=== PATIENT | female | born 1995 | race Caucasian/White ===

== ENCOUNTER 2024-02-26 15:40 | Inpatient (IN) ==
--- NOTE | 2024-02-26 16:47 | Emergency Department Note ---
Impression & Plan Mood disorder ED Provider Note NAME: KIARRA CANO AGE: 28 SEX: Female INFORMANT: Patient ED PROVIDER(S): Milo Paula MD CHIEF COMPLAINT: Mental health evaluation PLAN: Disposition: Admitted Outpatient prescription management: none Referral: MEDICAL DECISION MAKING: Patient was evaluated. She was anxious and depressed. Her laboratory testing was unremarkable except for mild hypokalemia. Likely due to the fact that she has had decreased p.o. intake. Patient had some abnormalities on urinalysis but has no urinary symptoms. Culture sent. Tylenol and salicylate levels negative. Alcohol level negative. Patient was evaluated by ED psychiatric bilingual patient support caseworker. Options for evaluation and management given and patient is voluntary for inpatient psychiatric treatment. Consultation was made with [facility]. Patient had oral potassium given. She was quite anxious and was given a oral dose of Xanax. Patient was evaluated by [facility]. She was accepted for voluntary inpatient treatment. Care/management discussed with: ED psychiatric bilingual patient support caseworker Level of care consideration(s): After review of the information above and other included data, I feel the patient requires escalation of care to admission. Triage Nursing notes: reviewed and agree them. Vital Signs: reviewed and remarkable for no significant abnormalities Additional History obtained from: none Chronic Medical/Social Conditions affecting care: Anxiety Prior/ Outside/ External records reviewed: none Differential Diagnosis: Mood disorder, infection, hypoglycemia, electrolyte abnormalities, cardiac sources, intracerebral event, toxicologic, trauma, neurologic, as well as other pathologies. Diagnostics, independently interpreted by me: ECG: none Cardiac Monitoring: none Medical decision rules: none Imaging studies: Deferred HPI: 28 year old Female arrives for a mental health evaluation. She notes over the last few weeks she is been having more feelings of depression. She states that over the last several weeks she has had increased of her Prozac. Despite increasing doses she had increased issues with her mood. Patient has had vague thoughts of SI. No HI. Denies any drug or alcohol use. She does note history of anxiety and states that has been worse as well. Patient has had poor sleep and concentration. She notes a lack of energy and appetite. Denies any recent medical illnesses. Pt denies LOC, headache, fevers, chills, diaphoresis, visual changes, neck pain, chest pain, breathing difficulties, nausea, vomiting, abdominal pain, back pain, melena, hematochezia, urinary symptoms, numbness, weakness, lymphadenopathy, rash, or other complaints. PAST MEDICAL HISTORY: See Below, anxiety PAST SURGICAL HISTORY: See Below, SOCIAL HISTORY: See Below, no alcohol or drugs HOME MEDICATIONS: See Below ALLERGIES: See Below VITALS: See Below PHYSICAL EXAMINATION: GENERAL: Awake, alert, depressed-appearing, in no distress HENT: Normocephalic, atraumatic. Oropharynx unremarkable. EYES: Normal conjunctiva. Sclera non-icteric. NECK: Inspection normal. Non-tender. Supple. No nuchal rigidity. FROM. No masses. RESPIRATORY: Clear to auscultation. No wheezes. No rales. Normal respiratory effort. CARDIAC: Normal rate. Normal rhythm. No murmurs. No rubs. Extremities warm and well perfused. Pulses equal. No JVD. GI: Soft, non-distended. No tenderness to palpation. No rebound or guarding. No masses. RECTAL: Deferred. MUSCULOSKELETAL: Atraumatic. Chest examination reveals no tenderness. The back is symmetrical on inspection without obvious abnormality. There is no CVA tenderness to palpation. No joint edema. LOWER EXTREMITIES: Calves are equal size bilaterally and non-tender. No edema. No discoloration. NEURO: Normal sensorium. No sensory or motor deficits noted. Current nerves II through XII intact. Speech normal. SKIN: No rash or jaundice noted. PSYCH: Depressed mood and flat affect. Vague SI without plan. No HI. PROCEDURES: none CRITICAL CARE: none OBSERVATION NOTE: none Past Med/Surg History Problem List (Updated 02/26/24 @ 16:52 by Milo Paula MD) Mood disorder (Acute) Pulmonary nodule Asthma Chronic fatigue syndrome Fibromyalgia STD exposure Environmental and seasonal allergies Arthritis Medical History Juvenile arthritis Environmental and seasonal allergies Arthritis Surgical History History of tonsillectomy and adenoidectomy History of sinus surgery Family History Grandfather (Maternal) Myocardial infarction Cancer Denies family history of Ovarian cancer Prostate cancer Breast cancer Colorectal cancer Social History Smoking Status: Never smoker Preferred Language: Lebanese Feels Safe at Home: Yes Gender Identity: Female Allergies Allergies Allergy/AdvReac Type Severity Reaction Status Date / Time ANTIBIOTIC FOR PINK EYE Allergy Intermediate EYE Uncoded 07/07/23 08:46 SWELLED, REDDENED, IRRITATED Home Meds Home Medications Medication Instructions Recorded Confirmed cetirizine 10 mg capsule (Zyrtec) 10 mg PO DAILY 04/23/22 02/26/24 montelukast 10 mg tablet 10 mg PO DAILY 04/23/22 02/26/24 (Singulair) celecoxib 200 mg capsule 200 mg PO HS 11/01/22 02/26/24 albuterol sulfate 90 mcg/actuation 2 puff inhalation Q6H PRN Wheezing 01/01/23 02/26/24 aerosol inhaler buspirone 15 mg tablet 15 mg PO BID 07/07/23 02/26/24 fluoxetine 40 mg capsule 40 mg DAILY 02/26/24 02/26/24 Previous Rx's Medication Instructions Recorded norgestimate 0.25 mg-ethinyl 1 tab PO DAILY #28 tabs 09/16/23 estradiol 35 mcg tablet (Sprintec (28)) Results & Data (ED) Vital Signs Vital Signs - 24 hr 02/26/24 15:40 02/26/24 18:05 Temperature 36.6 C Temperature Source Temporal Artery Scan Pulse Rate 97 H Pulse Rate [Finger] 76 Pulse Rhythm [Finger] Regular Pulse Strength [Finger] Normal Respiratory Rate 18 20 Respiratory Effort / Characteristics Non-Labored Respiratory Depth Normal Respiratory Pattern Regular Blood Pressure 142/103 H Blood Pressure [Left Arm] 137/89 Blood Pressure Mean 116 Blood Pressure Mean [Left Arm] 105 Blood Pressure Position [Left Arm] Lying Pulse Oximetry 99 98 Oxygen Delivery Method Room Air Sepsis Recent Fever Within 48 Hours No Sepsis New/Unexplained Change in Mental Status N/A Sepsis Action Taken by Nursing No Action Required Laboratory Data 02/26/24 16:28 02/26/24 16:28 Lab Results 02/26/24 02/26/24 02/26/24 Range/Units 16:15 16:20 16:28 WBC 7.46 (4.8-10.8) K/ul RBC 4.87 (4.20-5.40) M/uL Hgb 15.3 (12.0-16.0) g/dl Hct 42.3 (37.0-47.0) % MCV 86.9 (80.0-100.0) fL MCH 31.4 (25.0-34.0) pg MCHC 36.2 H (32.0-36.0) g/dL RDW Std Deviation 37.2 (36.4-46.3) fL RDW Coeff of Heather 11.7 (11.5-14.5) % Plt Count 407 H (130-400) K/uL MPV 8.9 L (9.4-12.4) fL Immature Gran % (Auto) 0.4 % Neut % (Auto) 72.0 % Lymph % (Auto) 21.6 % Vilas % (Auto) 5.4 % Eos % (Auto) 0.5 % Baso % (Auto) 0.1 % Neut # (Auto) 5.37 (1.40-6.50) K/uL Lymph # (Auto) 1.61 (1.20-3.40) K/uL Vilas # (Auto) 0.40 (0.11-0.59) K/uL Eos # (Auto) 0.04 (0.00-0.50) K/uL Baso # (Auto) 0.01 (0.00-0.20) K/uL Immature Gran # (Auto) 0.03 (0.01-0.20) K/uL Sodium 137 (136-145) mmol/L Potassium 3.1 L (3.5-5.1) mmol/L Chloride 102 (98-107) mmol/L Carbon Dioxide 27 (21-32) mmol/L Anion Gap 8 (3-11) BUN 8 (6-23) mg/dl Creatinine 0.69 (0.6-1.2) mg/dl Est Cr Clr Drug Dosing 100.8 ml/min eGFR 120.40 BUN/Creatinine Ratio 11.6 (10-20) Glucose 108 H (70-99(Fasting)) mg/dl Calcium 10.1 (8.6-10.3) mg/dl Total Bilirubin 1.6 H (0.2-1.0) mg/dl AST 18 (13-39) U/L ALT 14 (7-52) U/L Alkaline Phosphatase 40 (34-104) U/L Total Protein 8.2 (6.0-8.3) gm/dl Albumin 5.0 (3.4-5.0) gm/dl Globulin 3.2 (2.5-4.0) gm/dl Albumin/Globulin Ratio 1.6 (0.9-2) TSH 0.841 (0.300-4.500) uIu/ml HCG, Qual Negative (Negative) Urine Color Yellow Urine Appearance Clear (Clear) Urine pH 5.5 (4.5-7.5) Ur Specific [place] 1.017 (1.000-1.030) Urine Protein Negative (Negative) Urine Glucose (UA) Negative (Negative) Urine Ketones Trace H (Negative) Urine Blood Trace H (Negative) Urine Nitrite Negative (Negative) Urine Bilirubin Negative (Negative) Urine Urobilinogen Negative (Negative) Ur Leukocyte Esterase Trace H (Negative) Urine WBC (Auto) 6-10 H (0-5) /hpf Urine RBC (Auto) 0-2 (0-2) /hpf U Hyaline Cast (Auto) 0-2 (0-2) /lpf U Epithel Cells (Auto) 3-5 H (0-2) /hpf Urine Bacteria (Auto) 2+ H (None Seen) Salicylates < 3.0 L (3.0-30) mg/dl Urine Opiates Screen Neg (Neg) Ur Methadone, Qual Neg (Neg) Urine Fentanyl Screen Neg (Neg) Acetaminophen < 3 L (10-30) ug/ml Urine Barbiturates Neg (Neg) Ur Phencyclidine (PCP) Neg (Neg) U Amphetamin/Meth Scrn Neg (Neg) MDMA (Ecstasy) Screen Neg (Neg) U Benzodiazepines Scrn Neg (Neg) Ur Cocaine Metabolite Neg (Neg) U Marijuana (THC) Screen Pos H (Neg) Ethyl Alcohol mg/dL < 10.0 (<10.0) mg/dl SARS-CoV-2, RNA, NAAT NEGATIVE (NEGATIVE) Administered Medications Discontinued Medications Acetaminophen (Acetaminophen 500 Mg Tab) 1,000 mg PO NOW STA Stop: 02/26/24 17:49 Last Admin: 02/26/24 17:52 Dose: 1,000 mg Documented By: SAUL Alprazolam (Alprazolam 0.5 Mg Tablet) 1 mg PO NOW STA Stop: 02/26/24 19:01 Last Admin: 02/26/24 19:05 Dose: 1 mg Documented By: MED Potassium Chloride (Potassium Chloride Crtab 20 Meq Tabcr) 20 meq PO NOW STA Stop: 02/26/24 19:01 Last Admin: 02/26/24 19:05 Dose: 20 meq Documented By: MED Discharge Plan Visit Data Chief Complaint: Mental Health Evaluation Stated Complaint: MENTAL HEALTH EVALUATION ED Provider: Milo Paula Discharge Problem: Mood disorder Forms Stand Alone Forms: [facility], Suicide Prevention Resources Prescriptions Prescriptions: No Action albuterol sulfate 90 mcg/actuation HFA aerosol inhaler 2 puff inhalation Q6H PRN (Reason: Wheezing) norgestimate-ethinyl estradiol [Sprintec (28)] 0.25-35 mg-mcg tablet 1 tab PO DAILY Qty: 28 0RF montelukast [Singulair] 10 mg tablet 10 mg PO DAILY Zyrtec 10 mg capsule 10 mg PO DAILY buspirone 15 mg tablet 15 mg PO BID celecoxib 200 mg capsule 200 mg PO HS fluoxetine 40 mg capsule 40 mg DAILY Referrals Referrals: Lashonda Stanley DO [Primary Care Provider] -
[2024-02-26 17:06] LABS: Basophils # (auto) 0.01 K/uL (0.00-0.20); Basophils % (auto) 0.1 %; Eosinophils # (auto) 0.04 K/uL (0.00-0.50); Eosinophils % (auto) 0.5 %; Hematocrit (blood only) 42.3 % (37.0-47.0); Hemoglobin 15.3 g/dl (12.0-16.0); Immature Granulocytes # (auto) 0.03 K/uL (0.01-0.20); Immature Granulocytes % (auto) 0.4 %; Lymphocytes # (auto) 1.61 K/uL (1.20-3.40); Lymphocytes % (auto) 21.6 %; Mean Corpuscular Hemoglobin 31.4 pg (25.0-34.0); Mean Corpuscular Hgb Conc 36.2 g/dL (32.0-36.0); Mean Corpuscular Volume 86.9 fL (80.0-100.0); Mean Platelet Volume 8.9 fL (9.4-12.4); Monocytes % (auto) 5.4 %; Neutrophils # (auto) 5.37 K/uL (1.40-6.50); Platelet Count 407 K/uL (130-400); RDW Coefficient of Variation 11.7 % (11.5-14.5); RDW Standard Deviation 37.2 fL (36.4-46.3); Red Blood Count 4.87 M/uL (4.20-5.40); White Blood Count 7.46 K/ul (4.8-10.8)
[2024-02-26 17:07] LABS: Appearance Urine Clear (Clear); Bacteria Urine Automated 2+ (None Seen); Bilirubin Urine Negative (Negative); Blood Urine Trace (Negative); Cast Urine Automated 0-2 /lpf (0-2); Color Urine Yellow; Glucose Urine UA Negative (Negative); Ketones Urine Trace (Negative); Leukocyte Esterase Urine Trace (Negative); Nitrite Urine Negative (Negative); Protein Urine Negative (Negative); RBC Urine Automated 0-2 /hpf (0-2); Specific Gravity Urine 1.017 (1.000-1.030); Urobilinogen Urine Negative (Negative); pH Urine 5.5 (4.5-7.5)
[2024-02-26 17:18] LABS: Acetaminophen < 3 ug/ml (10-30); Pregnancy Test, Serum Negative (Negative); Salicylate < 3.0 mg/dl (3.0-30)
[2024-02-26 17:21] LABS: Albumin Globulin Ratio 1.6 (0.9-2); BUN Creatinine Ratio 11.6 (10-20); Bilirubin,Total 1.6 mg/dl (0.2-1.0); Calcium 10.1 mg/dl (8.6-10.3); Creatinine Clr Calc Pharmacy 100.8 ml/min; Globulin 3.2 gm/dl (2.5-4.0); Potassium 3.1 mmol/L (3.5-5.1); Total Protein 8.2 gm/dl (6.0-8.3)
[2024-02-26 17:36] LABS: Thyroid Stimulating Hormone 0.841 uIu/ml (0.300-4.500)
[2024-02-26] MEDS: ACETAMINOPHEN 500 MG TAB PO STA (17:52)
[2024-02-26 17:57] LABS: Amphetamines+Metham, Urine Neg (Neg); Barbiturates, Urine Neg (Neg); Benzodiazepine, Urine Neg (Neg); Cocaine, Urine Neg (Neg); Fentanyl, Urine Neg (Neg); MDMA (Ecstacy), Urine Neg (Neg); Marijuana, Urine Pos (Neg); Methadone, Urine Neg (Neg); Opiate, Urine Neg (Neg); Phencyclidine, Urine Neg (Neg)
[2024-02-26] MEDS: ALPRAZolam 0.5 MG TABLET PO STA (19:05)
[2024-02-26] MEDS: POTASSIUM CHLORIDE CRTAB 20 MEQ TABCR PO STA (19:05)
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
--- OUTSIDE RECORDS SUMMARY | 2024-02-26 19:54 | External Medical Summary | Summary of Care ---
Author Name Unknown Organization [facility] Address [address] [place] [address] Phone [phone] Care Team Providers Care Imaging Analyst Name Role Phone Lashonda Stanley DO Primary Care Provider [phone]- [phone] Reason for Visit * Reason Onset Date Comments TB Test Reading 12/01/2023 Encounter Details Date Type Department Care Team (Late st Contact Info) Description 12/01/2023 3:40 PM EDT Nurse Only Ancillary [address], [place] [address] [place] [address] [place], Nurse [facility] [address] [place] [address] TB Test Reading Allergies Active Allergy Reactions Criticality Noted Date Comments Other Allergy (See Comments) 04/28/2023 Drops for pink eye, unsure which one, does well with ointment documented as of this encounter (statuses as of 12/01/2023) Medications Medication Sig Dispensed Refills Start Date [...] mouth in the morning. control. 04/23/2022 Active Albuterol Sulfate HFA 108 (90 Base) MCG/ACT Inhalation Aerosol SolutionIndications:As thma due to environmental allergies Inhale 1 Puff by mouth every 4 hours as needed for Wheezing. 18 g 3 04/13/2023 Active LORazepam 0.5 MG Oral Tablet (Ativan)Indications:PT SD (post-traumatic stress disorder) Take 1 Tablet by mouth at bedtime as needed for Anxiety or Sleep. 30 Tablet 1 04/28/2023 Active busPIRone HCl 15 MG Oral Tablet (Buspar) Take 1 Tablet by mouth in the morning and 1 Tablet at noon and 1 Tablet before bedtime. 11/15/2023 Active Prazosin HCl 5 MG Oral Capsule (Minipress) Take 1 Capsule by mouth every night at bedtime. 11/15/2023 Active documented as of this encounter (statuses as of 12/01/2023) Active Problems Problem Noted Date Diagnosed Date Environmental and seasonal allergies 11/29/2023 Pulmonary nodule 11/13/2022 Overview: 3 mm RML, CT 11/2022 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 Fibromyalgia 12/15/2021 Chronic fatigue syndrome 12/15/2021 Asthma due to environmental allergies 12/15/2021 documented as of this encounter (statuses as of 12/01/2023) Immunizations Name Administration Dates Next Due COVID-19 mRNA, LNP-s, No Pre serve, 2-Dose Series ([employer]) 01/31/2021,05/07/2020,04/17/2020 Covid-19, Mrna, Lnp-s, Pf, B ivalent, 30 Mcg, IM, 12 yrs and above ([employer]) 01/16/2022 PPD 11/29/2023,07/22/2021 Seasonal Influenza, Quadrivalent, ID 01/12/2022, 03/07/2021 Tetanus [...] the money to buy more. Never true 11/28/19 Within the past 12 months, t he food you bought just didn't last and you didn't have money to get more. Never true 11/28/2023 Childcare Answer Date Recorded Do you feel overwhelmed with taking care of a child, family member or friend? No 11/28/2023 Does your family need help f inding childcare? (Household - for ages 0-17 years) Not on file 11/28/2023 Clothing Answer Date Recorded Have you been unable to get clothing when it was really needed? No 11/28/2023 Is your family able to get c lothes or diapers when needed? (Household - for ages 0-17 years) Not on file 11/28/2023 Personal Safety Answer Date Recorded Do you feel unsafe or have concerns for your saf ety? No 11/28/2023 Do you have concerns for you r family's safety? (Household - for ages 0-17 years) Not on file 11/28/2023 Utilities Answer Date Recorded Do you have trouble paying y our heating, water, or electric bill? No 11/28/2023 Is your family able to pay t he heat, water, or electric bill? (Household - for ages 0-17 years) Not on file 11/28/2023 Does your family have access to good internet? (Household - for ages 0-17 years) Not on file 11/28/2023 Employment Status Answer Date Recorded Are you unemployed or without regular income? No 11/28/2023 Does the household have a re gular source of income? (Household - for ages 0-17 years) Not on file 11/28/2023 Social Connections Answer Date Recorded How often do you feel lonely or isolated from those around you? Sometimes 11/28/2023 Financial Resource Strain Answer Date R ecorded Do you have any trouble payi ng for your medications, or do you think you might in the future? No 11/28/2023 Does your family have troubl e paying for medicine? (Household - for ages 0-17 years) Not on file 11/28/2023 Transportation Needs Answer Date Record ed Do you have trouble getting a ride to medical visits or work? (Adult - for ages 18 years and over) Not on file 11/28/2023 Does your family have a hard time getting a ride to doctors visits? (Household - for ages 0-17 years) Not on file 11/28/2023 Has lack of transportation k ept you from medical appointments, meetings, work, or from getting things needed for daily living? Check all that apply. No 11/28/2023 Do you (or your family) have trouble finding or paying for a ride (transportation)? (Household - for ages 0-17 years) Not on file 11/28/2023 Housing Stability Answer Date Recorded Do you currently live in a s helter or have no steady place to sleep at night? No 11/28/2023 Do you think you are at risk of becoming homeless? (Adult - for ages 18 years and over) Not on file 11/28/2023 Does your family worry about paying for your home or becoming homeless? (Household - for ages 0-17 years) Not on file 0 11/28/2023 Are you homeless or worried that you might be in the future? No 11/28/2023 Are you (or your family) jesus eless or worried that you might be in the future? (Household - for ages 0-17 years) Not on file Food Insecurity Answer Date Recorded Do you need food for this week? No 11/28/2023 Are you able to get enough f ood for your family? (Household - for ages 0-17 years) Not on file 11/28/2023 Does your family need food t his week? (Household - for ages 0-17 years) Not on file 11/28/2023 Do you always have enough fo od for your family? (Household - for ages 0-17 years) Not on file 11/28/2023 Sex and Gender Information Value Date Recorded Sex Assigned at Female 12/10/2021 8:11 PM EDT Gender Identity Female 12/10/2021 8:11 PM EDT Sexual Orientation Straight 12/10/2021 8: 11 PM EDT Job Start Date Occupation Industry Not on file Not on file Not on file documented as of this encounter Progress Notes * Meenakshi Mays LPN - 12/01/2023 3:29 PM EDT Patient here for PPD reading. PPD Results: 0 mm documented in this encounter Plan of Treatment Upcoming Encounters Date Type Department Care Team (Late st Contact Info) Description 11/29/2024 2:40 PM EDT Office Visit [facility] Cynthia [address] [place] [address] Lashonda Stanley DO [address] [place] [address] Health Maintenance Due Date Last Done Comments Pneumococcal Vaccine: Pediatrics (0 to 5 Years) and At-Risk Patients (6 to 64 Years) (1 of 2 - PCV) 2000 HIV Screening 2009 DTap/Tdap Vaccines (1 - Tdap) 2013 Hepatitis B Vaccine (1 of 3 - 19+ 3-dose series) 2013 Pap Smear 10/20/2019 10/19/2016 *SPIROMETRY ONCE FOR ASTHMA-ADULT 02/26/2022 COVID-19 Vaccine (2022- season) 2022 01/16/2022, 01/31/2021, 05/07/2020, Additional history exists Influenza Vaccine (FLU shot) (#1) 2023 01/12/2022, 03/07/2021 Depression Screening 04/28/2024 04/28/2023 HPV (Gardasil) Vaccine Aged Out No lo nger eligible based on patient's age to complete this topic MENINGOCOCCAL (MENACTRA/MENVEO) Aged Out No longer eligible based on patient's age to complete this topic documented as of this encounter Medical Devices Not on filedocumented as of this encounter Care Teams Imaging Analyst Relationship Specialty Start Date End Date Lashonda Stanley DO [address] [facility] [place] [address] PCP - General Family Medicine 12/15/21 documented as of this encounter
--- OUTSIDE RECORDS SUMMARY | 2024-02-26 19:54 | External Medical Summary | Summary of Care ---
Author Name Unknown Organization [facility] Address [address] [place] [address] Phone [phone] Care Team Providers Care Renal Social Worker Name Role Phone Lashonda Stanley DO Primary Care Provider +1- [phone] Reason for Visit * Reason Onset Date Comments Nutritional Services Documentation 09/09/2023 Encounter Details Date Type Department Care Team (Late st Contact Info) Description 09/09/2023 12:00 PM EDT Scheduled Telephone Nutrition Services, [facility] [address], [place] [id number] Lucy Lund RDN [address] [place] [address] Allergies Active Allergy Reactions Criticality Noted Date Comments Other Allergy (See Comments) 04/28/2023 Drops for pink eye, unsure which one, does well with ointment documented as of this encounter (statuses as of 09/09/2023) Medications Medication Sig Dispensed Refills Start Date [...] as of this encounter (statuses as of 09/09/2023) Active Problems Problem Noted Date Diagnosed Date Pulmonary nodule 11/13/2022 Overview: 3 mm RML, CT 11/2022 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 Fibromyalgia 12/15/2021 Chronic fatigue syndrome 12/15/2021 Asthma due to environmental allergies 12/15/2021 documented as of this encounter (statuses as of 09/09/2023) Immunizations Name Administration Dates Next Due COVID-19 mRNA, LNP-s, No Pre serve, 2-Dose Series ([employer]) 01/31/2021,05/07/2020,04/17/2020 Covid-19, Mrna, Lnp-s, Pf, B ivalent, 30 Mcg, IM, 12 yrs and above ([employer]) 01/16/2022 PPD 07/22/2021 Seasonal Influenza, Quadrivalent, ID [...] on file documented as of this encounter Miscellaneous Notes * Telephone Encounter - Lucy Lund RDN - 09/09/2023 12:08 PM EDT Called patient to answer her [employer] messages. Result of call: Left voicemail. Typed out my reply via [employer] Encouraged patient to continue working with a dietitian and that she is in good hands with another dietitian at [facility]. Lucy Lund, MS, RD, LDN Clinical Dietitian I Clinical Nutrition Services documented in this encounter Plan of Treatment Upcoming Encounters Date Type Department Care Team (Late st Contact Info) Description 09/29/2023 8:45 AM EDT Imaging Radiology [address] [place] [address] 11/29/2023 3:00 PM EDT Office Visit Family Practice [address] [place] [address] Lashonda Stanley DO [address] [place] [address] Health Maintenance Due Date Last Done Comments [...] filedocumented as of this encounter Care Teams Renal Social Worker Relationship Specialty Start Date End Date Lashonda Stanley DO [address] [place] [address] PCP - General Family Medicine 12/15/21 documented as of this encounter
--- OUTSIDE RECORDS SUMMARY | 2024-02-26 19:54 | External Medical Summary | Summary of Care ---
Author Name Unknown Organization [facility] Address [address] [place] [address] Phone [phone] Care Team Providers Care Director Zone Name Role Phone Lashonda Stanley DO Primary Care Provider +1- [phone] Encounter Details Date Type Department Care Team (Late st Contact Info) Description 12/03/2023 Orders Only PATIENT PORTAL DO NOT DELETE THIS DEPT USED BY [place] [id number] Allergies Active Allergy Reactions Criticality Noted Date Comments Other Allergy (See Comments) 04/28/2023 Drops for pink eye, unsure which one, does well with ointment documented as of this encounter (statuses as of 12/03/2023) Medications Medication Sig Dispensed Refills Start Date [...] as of this encounter (statuses as of 12/03/2023) Active Problems Problem Noted Date Diagnosed Date Environmental and seasonal allergies 11/29/2023 Pulmonary nodule 11/13/2022 Overview: 3 mm RML, CT 11/2022 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 Never true 11/28/19 24 Within the past 12 months, t he [...] Description 11/29/2024 2:40 PM EDT Office Visit Family Practice [address] [place] [address] Lashonda Stanley DO [address] [place] [address] Health Maintenance Due Date Last Done Comments [...] filedocumented as of this encounter Care Teams Director Zone Relationship Specialty Start Date End Date Lashonda Stanley DO [address] [place] [address] PCP - General Family Medicine 12/15/21 documented as of this encounter
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
--- OUTSIDE RECORDS SUMMARY | 2024-02-26 19:54 | External Medical Summary | Summary of Care ---
Author Name Unknown Organization [facility] Address [address] [place] [address] Phone [phone] Care Team Providers Care Medical Diagnostic Radiographer Name Role Phone Lashonda Stanley DO Primary Care Provider +1- [phone] Reason for Visit * Reason Onset Date Comments Appointment 09/28/2023 MRI Encounter Details Date Type Department Care Team (Late st Contact Info) Description 09/28/2023 Telephone Radiology [address] [facility] [address] Lucy Figueredo, RT (R) Appointment (MRI) Allergies Active Allergy Reactions Criticality Noted Date Comments Other Allergy (See Comments) 04/28/2023 Drops for pink eye, unsure which one, does well with ointment documented as of this encounter (statuses as of 09/28/2023) Medications Medication Sig Dispensed Refills Start Date [...] as of this encounter (statuses as of 09/28/2023) Active Problems Problem Noted Date Diagnosed Date Pulmonary nodule 11/13/2022 Overview: 3 mm RML, CT 11/2022 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 Never true 05/31/2022 Utilities Answer Date Recorded Do you have trouble paying y our heating, water, or electric bill? (Adult - for ages 18 years and over) Not on file 09/21/2023 Is your family able to pay t he heat, water, or electric bill? (Household - for ages 0-17 years) Not on file 09/21/2023 Does your family have access to good internet? (Household - for ages 0-17 years) Not on file 09/21/2023 Social Connections Answer Date Recorded How often do you feel lonely or isolated from those around you? (Adult - for ages 18 years and over) Not on file 09/21/2023 Sex and Gender Information Value Date Recorded Sex Assigned at Female 12/10/2021 8:11 PM EDT Gender Identity Female 12/10/2021 8:11 PM EDT Sexual Orientation Straight 12/10/2021 8: 11 PM EDT Job Start Date Occupation Industry Not on file Not on file Not on file documented as of this encounter Miscellaneous Notes * Telephone Encounter - Lucy Figueredo RT (R) - 09/28/2023 1:12 PM EDT Name: Irasema Cardoso Do you have any of the following: Pacemaker, stents, heart valves, aneurysm clips? No Have you ever worked with metal or have you ever gotten metal in your eyes? No Have you had a colonoscopy in the last 30 days? No On dialysis? No Do you have any dermals or body piercing's? No or ? No Do you wear an insulin pump or diabetic monitor? No No tattoos Knows to check in at [address] (R) documented in this encounter Plan of Treatment Upcoming Encounters Date Type Department Care Team (Late st Contact Info) Description 09/29/2023 8:45 AM EDT Imaging Radiology [facility] [address]st [facility], [address] [place] [address] 11/29/2023 3:00 PM EDT Office Visit Family [facility] [place] Malik [address] [place] [address] Lashonda Stanley DO [address] [place] [id number] Health Maintenance Due Date Last Done Comments Pneumococcal Vaccine: Pediatrics (0 to 5 Years) and At-Risk Patients (6 to 64 Years) (1 of 2 - PCV) 2000 HIV Screening 2009 DTaP,Tdap,and Td Vaccines (1 - Tdap) 2013 Hepatitis B (1 of 3 - 19+ 3-dose series) 2013 Pap Smear 10/20/2019 10/19/2016 *SPIROMETRY ONCE FOR ASTHMA-ADULT 02/26/2022 COVID-19 Vaccine ( season) 2022 01/16/2022, 01/31/2021, 05/07/2020, Additional history [...] filedocumented as of this encounter Care Teams Medical Diagnostic Radiographer Relationship Specialty Start Date End Date Lashonda Stanley DO [address] [place] [address] PCP - General Family Medicine 12/15/21 documented as of this encounter
--- OUTSIDE RECORDS SUMMARY | 2024-02-26 19:54 | External Medical Summary | Summary of Care ---
Author Name Unknown Organization [facility] Address [address] [place] [address] Phone [phone] Care Team Providers Care Rat Breeder Name Role Phone Lashonda Stanley DO Primary Care Provider +1- [phone] Encounter Details Date Type Department Care Team (Late st Contact Info) Description 12/02/2023 Orders Only Family Practice [facility] [address] [place] [address] Lashonda Stanley DO [address] [place], [place] [phone] Allergies Active Allergy Reactions Criticality Noted Date Comments Other Allergy (See Comments) 04/28/2023 Drops for pink eye, unsure which one, does well with ointment documented as of this encounter (statuses as of 12/02/2023) Medications Medication Sig Dispensed Refills Start Date [...] as of this encounter (statuses as of 12/02/2023) Active Problems Problem Noted Date Diagnosed Date Environmental and seasonal allergies 11/29/2023 Pulmonary nodule 11/13/2022 Overview: 3 mm RML, CT 11/2022 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 Fibromyalgia 12/15/2021 Chronic fatigue syndrome 12/15/2021 Asthma due to environmental allergies 12/15/2021 documented as of this encounter (statuses as of 12/02/2023) Immunizations Name Administration Dates Next Due COVID-19 mRNA, LNP-s, No Pre serve, 2-Dose Series ([employer]) 01/31/2021,05/07/2020,04/17/2020 Covid-19, Mrna, Lnp-s, Pf, B ivalent, 30 Mcg, IM, 12 yrs and above ([employer]) 01/16/2022 PPD 11/29/2023,07/22/2021 Seasonal Influenza, Quadrivalent, ID [...] 2:40 PM EDT Office Visit Family Practice [address], [place] [address] [place] [address] Lashonda Stanley DO [address] [place] [address] Health Maintenance Due Date Last Done [...] Not on filedocumented as of this encounter Procedures Procedure Name Priority Date/Time Associated Diagnosis Comments CHEMISTRY-OUTSIDE Routine 11/29/2023 TSH Routine 11/29/2023 documented in this encounter Results * TSH (11/29/2023) TSH - OUTSIDE LAB 1.020 0.410 - 4.670 MCIU/ML OUTSIDE LAB (SEE SCANNED REPORT) Blood Venous blood specimen / Unknown 11/29/2023 Lashonda Stanley DO LAB BLOOD ORDERABL ES OUTSIDE LAB (SEE SCANNED REPORT) * CHEMISTRY-OUTSIDE (11/29/2023) Not all results display below - see scan for full detail OUTSIDE LAB (SEE SCANNED REPORT) Comment:SCAN INCLUDES - CMP, IRON/TIBC, TSH, VIT B2 CREATININE-OUTSID E LAB 0.70 0.40 - 1.50 MG/DL OUTSIDE LAB (SEE SCANNED REPORT) EGFR-OUTSIDE LAB >90 >=60 ML/MIN/1.7 3M2 OUTSIDE LAB (SEE SCANNED REPORT) POTASSIUM-OUTSIDE LAB 3.9 3.6 - 5.0 MMOL/L OUTSIDE LAB (SEE SCANNED REPORT) GLUCOSE-OUTSIDE LAB 92 65 - 110 MG/DL OUTSIDE LAB (SEE SCANNED REPORT) HOURS FASTING OUTSID E LAB (SEE SCANNED REPORT) TRIGLYCERIDES-OUT SIDE LAB OUTSIDE LAB (SEE SCANNED REPORT) CHOLESTEROL-OUTSI DE LAB OUTSIDE LAB (SEE SCANNED REPORT) HDL-OUTSIDE LAB OUTS KIET LAB (SEE SCANNED REPORT) CHOL/HDL RATIO-OUTSIDE LAB OUTSIDE LA B (SEE SCANNED REPORT) LDL (CALCULATED)-OUTS KIET LAB OUTSIDE LAB (SEE SCANNED REPORT) LDL (DIRECT MEASURE)-OUTSIDE LAB OUTSIDE LAB (SEE SCANNED REPORT) HEMOGLOBIN, [id number] LAB OUTSIDE LAB (SEE SCANNED REPORT) PHOSPHORUS-OUTSID E LAB OUTSIDE LAB (SEE SCANNED REPORT) PTH-OUTSIDE LAB OUTS KIET LAB (SEE SCANNED REPORT) MICROALBUMIN RATIO-OUTSIDE LAB OUTSIDE LA B (SEE SCANNED REPORT) PROTEIN, UA-OUTSIDE LAB OUTSIDE LAB (SEE SCANNED REPORT) HGB OUTSIDE LA B (SEE SCANNED REPORT) 11/29/2023 Lashonda Stanley DO LABORATORY OUTSIDE LAB (SEE SCANNED REPORT) documented in this encounter Care Teams Rat Breeder Relationship Specialty Start Date End Date Lashonda Stanley DO [address] [facility] [place] [address] PCP - General Family Medicine 12/15/21 documented as of this encounter
--- OUTSIDE RECORDS SUMMARY | 2024-02-26 19:54 | External Medical Summary | Summary of Care ---
Author Name Unknown Organization [facility] Address [address] [place] [address] Phone [phone] Care Team Providers Care Soda Tester Name Role Phone Lashonda Stanley DO Primary Care Provider +1- [phone] Encounter Details Date Type Department Care Team (Late st Contact Info) Description 12/01/2023 Orders Only Family Practice [facility] [address] [place] [address] Lashonda Stanley DO [address] [place], [place] [phone] Allergies Active Allergy Reactions Criticality Noted Date [...] mRNA, LNP-s, No Pre serve, 2-Dose Series ([place]) 01/31/2021,05/07/2020,04/17/2020 Covid-19, Mrna, Lnp-s, Pf, B ivalent, 30 Mcg, IM, 12 yrs and above ([place]) 01/16/2022 PPD 11/29/2023,07/22/2021 Seasonal Influenza, Quadrivalent, ID [...] 12/01/2023 3:40 PM EDT Nurse Only [facility] [address], [place] [address] [place] [address] [place], Nurse [facility] [address] [place] [address] 11/29/2024 2:40 PM EDT Office Visit Family Practice [address], [place] [address] [place] [address] Lashonda Stanley DO [address] [place] [address] Health Maintenance Due Date Last Done Comments Pneumococcal Vaccine: Pediatrics (0 to 5 Years) and At-Risk Patients (6 to 64 Years) (1 of 2 - PCV) 2000 HIV Screening 2009 DTap/Tdap Vaccines (1 - Tdap) 2013 Hepatitis B Vaccine (1 of 3 - 19+ 3-dose series) 2013 Pap Smear 10/20/2019 10/19/2016 *SPIROMETRY ONCE FOR ASTHMA-ADULT 02/26/2022 COVID-19 Vaccine ( - 2022- season) 2022 01/16/2022, 01/31/2021, 05/07/2020, Additional history [...] Date/Time Associated Diagnosis Comments CHEMISTRY-OUTSIDE Routine 11/29/2023 documented in this encounter Results * CHEMISTRY-OUTSIDE (11/29/2023) Not all results display below - see scan for full detail OUTSIDE LAB (SEE SCANNED REPORT) Comment:SCAN INCLUDES - CBCD CREATININE-OUTSID E LAB OUTSIDE LAB (SEE SCANNED REPORT) EGFR-OUTSIDE LAB OUT SIDE LAB (SEE SCANNED REPORT) POTASSIUM-OUTSIDE LAB OUTSIDE LAB (SEE SCANNED REPORT) GLUCOSE-OUTSIDE LAB OUTSIDE LAB (SEE SCANNED REPORT) HOURS FASTING [...] LAB OUTSIDE LAB (SEE SCANNED REPORT) HEMOGLOBIN, [id number] LAB OUTSIDE LAB (SEE SCANNED REPORT) PHOSPHORUS-OUTSID E LAB OUTSIDE LAB (SEE SCANNED REPORT) PTH-OUTSIDE LAB OUTS KIET LAB (SEE SCANNED REPORT) MICROALBUMIN RATIO-OUTSIDE LAB OUTSIDE LA B (SEE SCANNED REPORT) PROTEIN, UA-OUTSIDE LAB OUTSIDE LAB (SEE SCANNED REPORT) HGB 13.3 12.0 - 16.0 GM/DL OUTSIDE LAB (SEE SCANNED REPORT) 11/29/2023 Lashonda Stanley DO LABORATORY OUTSIDE LAB (SEE SCANNED REPORT) documented in this encounter Care Teams Soda Tester Relationship Specialty Start Date End Date Lashonda Stanley DO [address] [facility] [place] [address] PCP - General Family Medicine 12/15/21 documented as of this encounter
--- OUTSIDE RECORDS SUMMARY | 2024-02-26 19:54 | External Medical Summary | Summary of Care ---
Author Name Unknown Organization [facility] Address [address] [place] [address] Phone [phone] Care Team Providers Care Community Administrator Name Role Phone Lashonda Stanley DO Primary Care Provider +1- [phone] Reason for Visit * Reason Comments Medical Nutrition Therapy Encounter Details Date Type Department Care Team (Late st Contact Info) Description 09/07/2023 10:00 AM EDT Telemedicine Nutrition Services, [facility] [address] [place] [address] Lucy Lund RDN [address] [place] [address] Eating disorder, unspecified type*; Overweight (BMI 25.0-29.9); Dietary counseling and surveillance Allergies Active Allergy Reactions Criticality Noted Date Comments Other Allergy (See Comments) 04/28/2023 Drops for pink eye, unsure which one, does well with ointment documented as of this encounter (statuses as of 09/07/2023) Medications Medication Sig Dispensed Refills Start Date [...] as of this encounter (statuses as of 09/07/2023) Active Problems Problem Noted Date Diagnosed Date Pulmonary nodule 11/13/2022 Overview: 3 mm RML, CT 11/2022 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 Fibromyalgia 12/15/2021 Chronic fatigue syndrome 12/15/2021 Asthma due to environmental allergies 12/15/2021 documented as of this encounter (statuses as of 09/07/2023) Immunizations Name Administration Dates Next Due COVID-19 mRNA, LNP-s, No Pre serve, 2-Dose Series ([employer]) 01/31/2021,05/07/2020,04/17/2020 Covid-19, Mrna, Lnp-s, Pf, B ivalent, 30 Mcg, IM, 12 yrs and above ([employer]) 01/16/2022 PPD 07/22/2021 Seasonal Influenza, Quadrivalent, ID [...] as of this encounter Progress Notes * Lucy Lund RDN - 09/07/2023 10:06 AM EDT NUTRITION FOLLOW-UP NOTE - OUTPATIENT [facility] Patient was identified by name and date. Patient location: HOME. I was not in a hospital or clinic location. After connecting through [employer], patient was verified with two unique identifiers. Patient (or authorized legal denial management representative)was then informed that this was a Telemedicine visit and being conducted confidentially over securelines. Methods to assure confidentiality were taken. Patient acknowledged consent and understandingof privacy and security of the Telemedicine visit. The patient agreed to participate. Reason for Nutrition Follow-up: History of an eating disorder; Disordered Eating NUTRITION ASSESSMENT: Client History Patient is a 27 year old female being seen for a history of disordered eating and restricting food intake. 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 She sees a therapist weekly. Support System: friends Barriers To Learning: None Special Education Needs: None Physical Activity: Hiking/walking, but limited since recovering from pneumonia. previously was running-5-6 days a week, lifting weights and elliptical. Food/Nutrition-Related History 7-8 am B: Protein drink + yogurt 11 am - 12 pm L: Sandwiches or leftovers from dinner Snack: crackers, granola bar, or almonds D: ("Stuff on the go". Busy with work.) Ordering to-go: vegetable, pasta, chicken Snack: crackers, granola bar, or almonds Drinks: water (at least 70 oz) and 1-2 cups of coffee throughout the school day. Diet Recall/Food Logs Indicate: Improved meal distribution calorie intake improving Inadequate protein intake Adequate fluid intake Food and Nutrient Intake and other pertinent information: What has gone well since we last met? Been doing ok eating-ureña. Trying to always eat foods that she always enjoys to help promote eating regularly What hasn't gone so well? Pneumonia 3 weeks ago - still recovering. Had a pinched nerve from a steroid shot - went to the ER.Had a bad experience at the ER - paperwork only talked about losing weight and high blood pressure.But did a good job handling it ok - she deleted all calorie counting apps. Had a friend check in onher during meal times. Last therapy appointment? Kierra Michelle - in [place] ([facility]) - meets once per week, doesn't talk about food as a primary focus. Every other appointment they talk about food. What ED URGES are you still having? - Restricting food - comments that doctor made triggered it. Trying to remind herself to stay on a structured schedule with eating - Body image: "ok, but not the worst it's ever been" ED BEHAVIORS are you still using? - Scale use? Scale is in the closet, hasn't used it since last time before a doctor's appt - Cutting food into tiny pieces Food Rules: - "I can't eat before or after a certain time of the day. 11 am - 7 pm" (started in high school, from a friend who did inpatient treatment. Intermittent fasting and weight loss). - "It's more important to fuel your body when you're hungry" - Cutting food into small pieces - struggling to come up with a recovery response. It might seem like I'm eating more than I actually am. Me cutting food into small pieces makes me feel like I'm eating less. - I have to exercise after eating a large meal - "My body needs that fuel. Exercising a normal amount is healthy, but overdoing it is just going to hurt myself" - Restricting to a set number of calories per day (600 kcals)- "It's important to eat more to have energy to do the things I want to do. I'll be tired/sick if I under eat" - Choosing what to eat for meal based on what I ate earlier in the day - "I remind myself to make healthy choice. I don't have to restrict the food choices I'm making" - Not eating breakfast - "It's important to start the day by fueling my body. I can do something simple like a protein shake" - Only letting myself eating when I feel so hungry where I feel nauseous - "the first signs of hunger is when I should be eating, not when I feel sick". Notices feeling slight light headed (blood sugar dropping), hunger in stomach Safe foods: salads, fruits, yogurt, almonds, cheese, vegetables, chicken, pasta (sometimes has urgeto choose gluten free or veggie-based pasta) Challenge foods: Red meat/deli meat (preference), sweets (feels guilty after) Medications Changes/Updates: Seeing a psychiatrist - changed some meds (started cymbalta but she felt worse so she stopped) Nutrition-Focused Physical Findings Patient is noticing some hunger and fullness cues (around typical meal times now) Digestion: Nausea is improving. 3/10, not every day. When she eats, she gets an upset stomach. Due to feeling overly anxious about things. Anthropometric Measurements Current Weight: No updated weight. May 06 - 136 lb (patient report) Wt Readings from Last 1 Encounters: 04/28/23 64.4 kg (142 lb) Wt Readings from Last 4 Encounters: 04/28/23 64.4 kg (142 lb) 04/08/23 63.4 kg (139 lb 11.2 oz) 04/01/23 66.3 kg (146 lb 3.2 oz) 02/02/23 65.8 kg (145 lb) Weight Change: No updated weight due to telemedicine BMI Readings from Last 1 Encounters: 04/28/23 27.28 kg/m Biochemical Data, Medical Tests, and Procedures Outside labs scanned in - Iron levels WNL Previous Nutrition Diagnosis: Suboptimal energy intake Unintentional weight loss Disordered eating pattern related to anorexia nervosa, Poor meal distribution, Inadequate calorie intake, Inadequate protein intake, over exercising as evidenced by medical diagnosis, Dietary Guidelines, Reported diet and activity recall. Progress towards goals: Make one of your snacks a double snacks (can add juice or other beverage) - PROGRESSING Find Food Rules/Recovery Responses to go over next time - MET Be aware of when you're cutting food into tiny pieces - PROGRESSING CURRENT NUTRITION DIAGNOSIS Same as previous. NUTRITION INTERVENTION: NUTRITION EDUCATION Initial/brief nutrition education NUTRITION COUNSELING Strategies Nutrition Prescription: Diet: Good Nutrition [address]. Jeor: 2230 kcals (x 1.73 activity factor) Daily Calorie Needs: minimum of 2200 Kcals Daily Protein Needs: 64-77 Grams protein (1-1.2 g/kg) Current Goals: Add more to afternoon snacks (add cheese to crackers, add a caloric beverage, etc.) Be aware of when you're cutting food into tiny pieces and starting to stop that behavior Be more consistent with breakfast Continue to acknowledge hunger signs sooner rather than later Dietitian Action: Reviewed eating patterns since last visit. Patient got really sick recently, had to go to the ER and had a triggering experience with the doctor focusing on her needing to lose weight. She was able to not fall back into restriction and have a friend help support her. We reviewed her food rules/recovery versions. She is going to focus on stopping cutting her food into small pieces and honoring her hunger signs. Recommendations to Ordering Provider: Continue current plan of nutrition care. NUTRITION MONITORING AND EVALUATION: The following will be monitored and evaluated at the next visit: Review food logs for nutritional adequacy. Monitor goals and progress. Need for higher level of care / support Plan: Patient scheduled to return in 1 month. 30 minutes Medical Nutrition Therapy Time In: 1006 (09/07/23 1006) Time Out: 1042 (09/07/23 1043) Lucy Lund RDN NUTRITION, LOU documented in this encounter Plan of Treatment Upcoming Encounters Date Type Department Care Team (Lois st Contact Info) Description 09/29/2023 8:45 AM EDT Imaging Radiology [facility] 1st [facility], [address] [place] [address] 11/29/2023 3:00 PM EDT Office Visit [facility] [address] [place] [id number] Lashonda Stanley DO [address] [place] [address] Health Maintenance Due Date [...] as of this encounter Visit Diagnoses Diagnosis Eating disorder, unspecified type- Primary Overweight (BMI 25.0-29.9) Overweight Dietary counseling and surveillance Dietary surveillance and counseling documented in this encounter Care Teams Community Administrator Relationship Specialty Start Date End Date Lashonda Stanley DO [address] [facility] [place] [id number] PCP - General Family Medicine 12/15/21 documented as of this encounter
--- OUTSIDE RECORDS SUMMARY | 2024-02-26 19:55 | External Medical Summary | Summary of Care ---
Author Name Unknown Organization [facility] Address [address] [place] [address] Phone [phone] Care Team Providers Care Supervisor Type Photography Name Role Phone Lashonda Stanley DO Primary Care Provider +1- [phone] Encounter Details Date Type Department Care Team (Late st Contact Info) Description 08/27/2023 Result Scan Unspecified Department <No scans attached> Allergies Active Allergy Reactions Criticality Noted Date [...] mRNA, LNP-s, No Pre serve, 2-Dose Series ([employer]) 01/31/2021,05/07/2020,04/17/2020 Covid-19, Mrna, Lnp-s, Pf, B ivalent, 30 Mcg, IM, 12 yrs and above ([employer]) 01/16/2022 PPD 07/22/2021 Seasonal Influenza, Quadrivalent, ID [...] 09/07/2023 10:00 AM EDT Telemedicine Nutrition Services, [facility] [address] [facility] [address] Lucy Lund RDN [address] [facility] [phone] 09/29/2023 8:45 AM EDT Imaging Radiology [facility] 1st [facility] [place] [address] [facility] [place] [address] 11/29/2023 3:00 PM EDT Office Visit Family Practice [address] [place] [address] Lashonda Stanley DO [address] [place] [address] Health Maintenance Due Date Last Done Comments [...] Procedure Name Priority Date/Time Associated Diagnosis Comments RADIOLOGY SCANNED RESULT 08/27/2023 RADIOLOGY SCANNED RESULT 08/27/2023 documented in this encounter Results * RADIOLOGY SCANNED RESULT (08/27/2023) 08/27/2023 No Physician Data Unknown DIAGNOSTIC RAD IOLOGY SERVICES * RADIOLOGY SCANNED RESULT (08/27/2023) 08/27/2023 No Physician Data Unknown DIAGNOSTIC RAD IOLOGY SERVICES documented in this encounter Care Teams Supervisor Type Photography Relationship Specialty Start Date End Date Lashonda Stanley DO [address] [facility] [place] [address] PCP - General Family Medicine 12/15/21 documented as of this encounter
[2024-02-26] MEDS ORDERED: MAGNESIUM HYDROXIDE SUSP 30 ML UDC PO PRN (20:36)
[2024-02-26] MEDS ORDERED: ALUMINUM/MAGNESIUM SUSP 30 ML UDC PO PRN (20:36)
[2024-02-26] MEDS ORDERED: SODIUM CHLORIDE 0.65% NA SOLN 45 ML (OCEAN) PRN (20:36)
[2024-02-26] MEDS ORDERED: BISMUTH SUBSALICYLATE 262 MG CHEW PO PRN (20:36)
[2024-02-26 21:22] VITALS: RESP 16
[2024-02-26] MEDS: CeleBREX 200 MG CAP PO SCH (21:36)
[2024-02-26] MEDS: CETIRIZINE HCL 10 MG TABLET PO SCH (21:36)
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
[2024-02-27] MEDS ORDERED: FLUoxetine HCL 10 MG CAP PO PRN (11:24)
[2024-02-27] MEDS: CEROVITE ADV FORMULA TAB PO SCH (11:44)
[2024-02-27] MEDS: MONTELUKAST SODIUM 10 MG TABLET PO SCH (11:44)
[2024-02-27] MEDS: busPIRone 15 MG TAB PO SCH (11:44)
[2024-02-27] MEDS: INFLUENZA VACC TS2024-25(6m+)/PF (IIV3) 0.5mL Syr IM ONE (14:14)
[2024-02-27] MEDS: ETHINYL ESTRADIOL PO SCH (21:05)
[2024-02-27] MEDS: NORGESTIMATE PO SCH (21:05)
[2024-02-27] MEDS: hydrOXYzine HCl 25 MG TAB PO PRN (21:50)
[2024-02-27] MEDS ORDERED: CeleBREX 200 MG CAP PO SCH (22:00)
[2024-02-27] MEDS ORDERED: CETIRIZINE HCL 10 MG TABLET PO SCH (22:00)
--- NOTE | 2024-02-28 08:49 | Psychiatric Progress Note ---
Date of Service February 28, 2024 Impression / Recommendations Impression KIARRA CANO is a 28-year-old woman who currently lives in [place] alone, has a history of KYLIE, PTSD, fibromyalgia and arthritis, and was admitted on 02/26/24 20:09 on a 201 voluntary commitment for worsening anxiety, depression and SI. Diagnostically consistent with major depressive disorder and KYLIE with panic attacks. Seems she has been experiencing increased anxiety in the context of new life transitions and increased depression in recent weeks possible due to increased anxiety vs as negative side effect from fluoxetine titration. A: Depression improving a bit, denies SI but still with some self-harm urges. Discussed medication treatment options in detail. Discussed risks, benefits and alternatives. Patient would like to start and consented to naltrexone as off- label use for self-harm. She prefers to hold off on starting clonidine or any other medications for nightmares or sleep at this point. Reviewed side effects including but not limited to: liver injury, need for routine liver functioning monitoring (ideally at least annually), GI symptoms, potential worsening of depression or SI, need to avoid concurrent use of opioid medications. Reviewed option for [facility] IOP, she prefers to continue with individual therapy at this time but aware this is a resource if her symptoms worsen or do not improve in the outpatient setting despite medication adjustments. Overall, I spent a total of 40 minutes on this case including meeting with the patient, reviewing the chart, nursing report, multidisciplinary team meeting, orders, and documentation. (1) Depression with suicidal ideation: (2) Generalized anxiety disorder with panic attacks: (3) Fibromyalgia: Plan 02/28/2024: -Start naltrexone 25mg daily with dinner, plan to eventually titrate to 50mg daily as tolerated 02/27/2024: The patient was admitted to the [facility] ([facility] mental health unit) on q15 min checks (behavioral with suicide precautions) for safety. The patient will participate in group, recreational, and milieu therapies and will be offered additional individual and family sessions as clinically appropriate. -Discontinue fluoxetine -Continue Buspar 15mg BID Inventory Assets Strengths: supportive relationships, willing to get treatment Needs: safety and stabilization, medication adjustment, additional coping skills, increased outpatient services Suicide Risk Level Suicide Risk Level: Moderate (q15 min suicide checks) (mood improving, denies SI in the hospital, feels safe here and feels able to ask for support) Suicide Risk Level Comments: Risk Factors Assessment Male: No : Yes Do You Have Access To A Gun?: Yes (Friend removed firearms from pt's home) Health Problems: Yes Mental Health Diagnoses: Yes Substance Use Disorders: No Previous Attempt: No Family History of Suicide: No Previous Psychiatric Hospitalization: No Hopelessness: Yes Protective Factors Assessment Employed: Yes Stable Relationships: Yes Good Rapport with Provider: Yes Interval History Identifying Information KIARRA CANO is a 28-year-old woman who currently lives in [place] alone, has a history of KYLIE, PTSD, fibromyalgia and arthritis, and was admitted on 02/26/24 20:09 on a 201 voluntary commitment for worsening anxiety, depression and SI. Chief Complaint "I'm ok". Review of Systems Sleep Information Total Hours of Sleep: 6.30 Sleep Comments: PRN Vistaril Meal Information Percent Meal Consumed - Breakfast: 100 Percent Meal Consumed - Lunch: 100 Percent Meal Consumed - Dinner: 100 Subjective Subjective Patient was seen & assessed and interval progress reviewed with treatment team nursing and social work. Attending groups, social with peers. Mood improving. Working on her safety plan. Today reports some ongoing self-harm urges but has not acted on these. Having some anxiety but depression "a little better". Denies SI. No serotonin withdrawal side effects. Had a nightmare last night so didn't sleep very well and feels a little tired today. Physical Exam Psychiatric Orientation: alert and oriented x 3 Apperance: appropriately dressed and appropriately groomed Eye Contact: good eye contact Motor Behavior: no abnormal motor movements Speech: normal rate/rhythm/volume of speech Affect: + anxious affect Mood: + depressed mood and + anxious mood Thought Process: goal directed thought process Thought Content: reality based without delusions Suicidal Thoughts: denies suicidal thoughts, denies suicidal plan and denies suicidal intent Homicidal Thoughts: denies homicidal thoughts Hallucinations: no auditory hallucinations and no visual hallucinations Cognition: recent memory grossly intact, remote memory grossly intact, attention grossly intact and language grossly intact Estimated Intelligence: consistent with education level Insight: + fair insight Judgment: + fair judgement Vital Signs (Past 24 Hours) Last Vital Signs Temp 36.9 C 02/28/24 06:57 Pulse 66 02/28/24 06:57 Resp 16 02/28/24 06:57 BP 111/73 02/28/24 06:58 Pulse Ox 99 02/28/24 06:57 O2 Del Method Room Air 02/28/24 06:57 Results & Data ([facility]) Current Inpatient Medications Current Inpatient Medications: Current Inpatient Medications Acetaminophen (Acetaminophen 325 Mg Tab) 650 mg PO Q4H PRN PRN Reason: Headache or Minor Fever Stop: 03/27/24 20:35 Al Hydrox/Mg Hydrox/Simethicone (Aluminum/Magnesium Susp 30 Ml Udc) 30 ml PO Q4H PRN PRN Reason: GI Upset Stop: 03/27/24 20:35 Bismuth Subsalicylate (Bismuth Subsalicylate 262 Mg Chew) 2 tab PO Q30M PRN PRN Reason: Loose Stool/Diarrhea Stop: 03/27/24 20:35 Buspirone HCl (Buspirone 15 Mg Tab) 15 mg PO BID [facility] Stop: 03/28/24 11:14 Last Admin: 02/28/24 08:34 Dose: 15 mg Celecoxib (Celebrex 200 Mg Cap) 200 mg PO HS [facility] Stop: 03/27/24 21:59 Last Admin: 02/27/24 21:04 Dose: 200 mg Cetirizine HCl (Cetirizine Hcl 10 Mg Tablet) 10 mg PO HS [facility] Stop: 03/27/24 21:59 Last Admin: 02/27/24 21:04 Dose: 10 mg Fluoxetine HCl (Fluoxetine Hcl 10 Mg Cap) 10 mg PO DAILY PRN PRN Reason: serotonin withdrawal Stop: 03/28/24 11:29 Hydroxyzine HCl (Hydroxyzine Hcl 25 Mg Tab) 50 mg PO HSZ PRN PRN Reason: Insomnia Stop: 03/27/24 19:38 Last Admin: 02/27/24 21:50 Dose: 50 mg Magnesium Hydroxide (Magnesium Hydroxide Susp 30 Ml Udc) 30 ml PO DAILY PRN PRN Reason: Constipation Stop: 03/27/24 20:35 Montelukast Sodium (Montelukast Sodium 10 Mg Tablet) 10 mg PO DAILY [facility] Stop: 03/28/24 11:14 Last Admin: 02/28/24 08:35 Dose: 10 mg Multivitamins/Minerals (Cerovite Adv Formula Tab) 1 tab PO QAM [facility] Stop: 03/28/24 11:14 Last Admin: 02/28/24 08:35 Dose: 1 tab Norgestimate ( Pom Norgestimate/Ethinyl Estrad 0.25/0.035mg Dspk) 1 tab PO HS [facility]; Protocol Stop: 03/28/24 21:59 Last Admin: 02/27/24 21:05 Dose: 1 tab Sodium Chloride (Sodium Chloride 0.65% Na Soln 45 Ml ([place])) 1 - 2 sprays NA PRN PRN PRN Reason: Nasal Dryness/Congestion Stop: 03/27/24 20:35 Mental Health & Subst Abuse Tx Psychiatrist Date Of Appointment With Psychiatric Provider: March 2024 need to confirm time Therapist Name of Therapist: Kierra Martinez Date of Therapist Appointment: 02/28/2024 Restaurant Host Name of Restaurant Host: None Post Discharge Appointments Primary Care Physician Name Of Family Doctor/PCP: Dr. Stanley
[2024-02-28] MEDS: ACETAMINOPHEN 325 MG TAB PO PRN (11:19)
[2024-02-28] MEDS: NALTREXONE HCL 50 MG TAB PO SCH (17:26)
[2024-02-28] MEDS: hydrOXYzine HCl 25 MG TAB PO PRN (18:27)
[2024-02-29 06:44] VITALS: BP 107/70; PULSE 97; TEMP 98.1; O2SAT 98
--- NOTE | 2024-02-29 08:28 | Discharge Summary ---
Date of Service February 29, 2024 History of Present Illness She presents for psychiatric admission for worsening anxiety, depression and SI and feeling unable to remain safe outside of the hospital in the context of multiple psychosocial stressors including starting a new job and a recent move. She endorses depressive symptoms including anhedonia, tearfulness, self-guilt, hopelessness ("A little bit because I don't usually feel like this"), helplessness, decreased energy, decreased motivation, decreased concentration (but has always struggled with this), increased sleep over this past week (typically hard to fall asleep and with overnight awakenings), decreased appetite (increased nausea). Increased SI and self-harm thoughts about three weeks ago, occurring most days. She endorses anxiety symptoms including excessive worry, restlessness, fatigue, muscle tension, insomnia, decreased concentration, headaches, GI symptoms, panic attacks (multiple in the last few weeks, prior to that maybe once a week or every other week). She endorses PTSD symptoms including decreased sleep/night terrors (once or twice a week). She is currently prescribed fluoxetine (titrated gradually since January, currently at 40mg daily increased about a week ago with increased depression since then) and Buspar 15mg BID (has been on this since Nov 2022 and found it helpful). History of past scripts for lorazepam and Xanax. Psychiatric ROS notable for no current nor history of symptoms of sid, psychosis, OCD. History of eating disorder and self-harm via cutting. Physical Exam Vital Signs (Past 24 Hours) Last Vital Signs Temp 36.7 C 02/29/24 06:42 Pulse 97 H 02/29/24 06:42 Resp 16 02/29/24 06:42 BP 107/70 02/29/24 06:42 Pulse Ox 98 02/29/24 06:42 O2 Del Method Room Air 02/29/24 06:42 Principal Diagnosis Unspecified Depressive Disorder Psychiatric Data See daily stay summary. In short, patient was engaged with the social/therapeutic milieu of the unit, safety was maintained and the patient was cooperative with care. Medication changes included discontinuation of fluoxetine, initiation of naltrexone 25mg daily as off-label use for self-harm urges and possible added benefit for fibromyalgia pain, Vistaril as needed for anxiety/insomnia and continuation of Buspar BID for KYLIE and they tolerated this well. A support session was held and safety plan was completed prior to discharge. They participated in safety planning and in discussions about ways to seek support and recognizing warning signs and utilizing coping skills. Reviewed ways to have their safety plan and contacts easily available should thoughts of SI re-emerge in the future. Reviewed importance of seeking emergency care should SI intensify, worsen or should they feel unsafe in the future which they agree to do. On the day of discharge they stated their mood was "I'm excited" and remained future-oriented including spending time with a friend and engaging in aftercare appointments for psychiatry and therapy. Day of Discharge Assessment Today the patient voices readiness for discharge. They note improvement in mood and anxiety. They deny thoughts of harm to self or others. Thoughts are organized and they are clinically improved from admission. There is no evidence of psychosis. They improved in the hospital with support and medication adjustments. They agree to take medications as prescribed and keep follow-up appointments. At the time of the discharge they are deemed to be stable and appropriate for outpatient level of care. They are not deemed to be at imminent risk of harm to self or others. They are aware of emergency and crisis services. Knows to call 911 or go to nearest emergency care center if in a crisis which cannot be handled as an outpatient. Suicide risk assessment: Acute risk is low given improvement in mood and denial of SI, lack of access to lethal means, hopefulness, future-oriented. Chronic risk is moderate given some non-modifiable risk factors: psychiatric co-morbid diagnoses, hx self-harm, trauma, but also with protective factors including employed, good social support, sense of responsibility to family and social supports, outpatient care in place, positive coping skills, positive problem solving, willingness to engage with treatment and self-observation. Counseled on ways to reduce acute and chronic risk including engaging with outpatient providers, using safety plan if needed, utilizing supports, taking medication, and using coping skills. Modifiable risk factors of SI, anxiety and depression were addressed during hospitalization through development of new coping skills, support meeting, safety planning, and medication adjustments. Discharge physical exam: See admission H&P, MSE per above and day of discharge summary. Overall, I spent a total of 35 minutes on this case including meeting with the patient, reviewing the chart, nursing report, multidisciplinary team meeting, discharge orders, anticipatory planning, safety planning, risk assessment and documentation. Transition of Care Transition Of Care Record: was reviewed with the patient Advance Directives Advance Directives Information Provided: No Advance Directives: No Mental Health Advance Directive: No Advance Directives on File: No Living Will: No Power of Search And Rescue Officer: No Advance Directives Reason:: Declines as Mental Health Visit. Suicide Risk Level Suicide Risk Level Comments: Acute risk is low given denial of SI, see further assessment above Risk Factors Assessment Male: No : Yes Do You Have Access To A Gun?: Yes (Friend removed firearms from pt's home) Health Problems: Yes Mental Health Diagnoses: Yes Substance Use Disorders: No Previous Attempt: No Family History of Suicide: No Previous Psychiatric Hospitalization: No Hopelessness: No Protective Factors Assessment Employed: Yes Stable Relationships: Yes Good Rapport with Provider: Yes Discharge Data Lab Results 02/26/24 02/26/24 02/26/24 16:15 16:20 16:28 WBC 7.46 RBC 4.87 Hgb 15.3 Hct 42.3 MCV 86.9 MCH 31.4 MCHC 36.2 H RDW Std Deviation 37.2 RDW Coeff of Heather 11.7 Plt Count 407 H MPV 8.9 L Immature Gran % (Auto) 0.4 Neut % (Auto) 72.0 Lymph % (Auto) 21.6 Moca % (Auto) 5.4 Eos % (Auto) 0.5 Baso % (Auto) 0.1 Neut # (Auto) 5.37 Lymph # (Auto) 1.61 Moca # (Auto) 0.40 Eos # (Auto) 0.04 Baso # (Auto) 0.01 Immature Gran # (Auto) 0.03 Sodium 137 Potassium 3.1 L Chloride 102 Carbon Dioxide 27 Anion Gap 8 BUN 8 Creatinine 0.69 Est Cr Clr Drug Dosing 100.8 eGFR 120.40 BUN/Creatinine Ratio 11.6 Glucose 108 H Calcium 10.1 Total Bilirubin 1.6 H AST 18 ALT 14 Alkaline Phosphatase 40 Total Protein 8.2 Albumin 5.0 Globulin 3.2 Albumin/Globulin Ratio 1.6 TSH 0.841 HCG, Qual Negative Urine Color Yellow Urine Appearance Clear Urine pH 5.5 Ur Specific [place] 1.017 Urine Protein Negative Urine Glucose (UA) Negative Urine Ketones Trace H Urine Blood Trace H Urine Nitrite Negative Urine Bilirubin Negative Urine Urobilinogen Negative Ur Leukocyte Esterase Trace H Urine WBC (Auto) 6-10 H Urine RBC (Auto) 0-2 U Hyaline Cast (Auto) 0-2 U Epithel Cells (Auto) 3-5 H Urine Bacteria (Auto) 2+ H Salicylates < 3.0 L Urine Opiates Screen Neg Ur Methadone, Qual Neg Urine Fentanyl Screen Neg Acetaminophen < 3 L Urine Barbiturates Neg Ur Phencyclidine (PCP) Neg U Amphetamin/Meth Scrn Neg MDMA (Ecstasy) Screen Neg U Benzodiazepines Scrn Neg Ur Cocaine Metabolite Neg U Marijuana (THC) Screen Pos H Ethyl Alcohol mg/dL < 10.0 SARS-CoV-2, RNA, NAAT NEGATIVE Hospital Course (1) Depression with suicidal ideation: (2) Generalized anxiety disorder with panic attacks: (3) Fibromyalgia: Plan 02/29/2024: Tolerating medications well, no serotonin withdrawal side effects, ready for discharge 02/28/2024: -Start naltrexone 25mg daily with dinner, plan to eventually titrate to 50mg daily as tolerated 02/27/2024: The patient was admitted to the [facility] ([facility] mental health unit) on q15 min checks (behavioral with suicide precautions) for safety. The patient will participate in group, recreational, and milieu therapies and will be offered additional individual and family sessions as clinically appropriate. -Discontinue fluoxetine -Continue Buspar 15mg BID Mental Health & Subst Abuse Tx Psychiatrist Name of Psychiatrist: Roselia Ledesma-Dr. Garcia Psychiatrist's Date Of Appointment With Psychiatric Provider: 03/22/2024 Time of Appointment with Psychiatrist: 3:30PM Psychiatric Appointment Comment: Telehealth Therapist Name of Therapist: Liborio Weiss-Kierra Martinez Therapist's Date of Therapist Appointment: 03/06/2024 Time of Therapist Appointment: 6:30PM User Experience Analyst Name of User Experience Analyst: None Post Discharge Appointments Primary Care Physician Name Of Family Doctor/PCP: Dr. Stanley Other #1: Name of Aftercare Appointment: [facility] Intensive outpatient therapy program (virtual) Phone Number of Aftercare Appointment: [phone] Aftercare Appointment Comment: This program is available, if you are interested call to self refer Discharge Plan Discharge Items Patient Disposition: Home - Self-Care Reason For Visit: UNSPECIFIED DEPRESSIVE DISORDER Discharge Diagnosis: Unspecified Depressive Disorder Activity: Resume your previous activity Non-emergency contact: Primary Care Provider, Psychiatrist and Therapist Call non-emergency contact if: you have any medication questions and your symptoms worsen Follow-up/Referrals: Lashonda Stanley DO [Primary Care Provider] - Diet: Regular Addtl Attending Provider Instructions: Optional mobile apps we discussed: -Suicide safety plan -Virtual Hope Box -[employer] $ SPECIAL CARE INSTRUCTIONS: 1. Follow through with your scheduled aftercare appointments. If unable to keep an appointment, please call to reschedule. 2. Take your medication only as prescribed. Medication should not be changed or stopped without the approval of your doctor. In the event of worsening symptoms or concerns about side effects, contact your doctor immediately. 3. Utilize new healthy coping skills, anger management skills, and stress management skills learned during your hospitalization. Journal feelings and process them with a support person. Identify stressors or situations that may result in relapse, deterioration or inappropriate behaviors and develop a plan to deal with those issues. 4. If your coping skills are ineffective and you are in crisis, contact your outpatient providers for direction. If unable to reach your providers, please call the [facility] CRISIS LINE AT , go to the [facility] walk-in center at [address] [place] [address] A, [place], or go to the closest Emergency Room. 5. Avoid alcohol and un-prescribed drugs. 6. You have been provided with the Mental Health Advance Directives Pamphlet for your review. 7. Your condition is stable for discharge to outpatient level of care, but recovery is an ongoing process. Ifthoughts to harm yourself or others return, follow the safety plan developed during your stay. Planning for a safe return home includes securing weapons. Our treatment team recommends weaponsbe removed from the home until your outpatient provider reassesses your progress. In rare cases where the items themselvescannot be removed, guns and ammunitionshould be secured separatelyand keys stored by a reliable personoutside of the home. If you were admitted on an involuntary commitment, the police or other legal authorities may be involved in this process. AFTERCARE APPOINTMENTS: * Please call your insurance company prior to your scheduled appointment to confirm your aftercare providers are covered. Take your insurance information to your appointments. WHO TO CALL AND WHEN: Medical Emergencies: For questions or emergencies related to your hospital stay, please contact the Inpatient Behavioral Health Unit at [phone]. A speech and language clinician is on-call 24/7 for the Behavioral Health Unit for emergencies At any time you feel your situation is an emergency, you may also call 911 immediately. National Crisis Hotline: 988 Pending Studies at Discharge: No Stand-Alone Forms: [facility] Medications and DC Order Prescriptions: New hydroxyzine HCl 50 mg tablet 50 mg PO HS PRN (Reason: insomnia) 30 Days Qty: 30 0RF hydroxyzine HCl 25 mg Tablet 25 mg PO DAILY PRN (Reason: anxiety/panic attack) 30 Days Qty: 15 0RF naltrexone 50 mg Tablet 25 mg PO DAILYBD 30 Days Qty: 15 0RF Cerovite Senior 0.4 mg-300 mcg- 250 mcg Tablet 1 tab PO QAM 1 Days Qty: 1 0RF Continued albuterol sulfate 90 mcg/actuation HFA aerosol inhaler 2 puff inhalation Q6H PRN (Reason: Wheezing) norgestimate-ethinyl estradiol [Sprintec (28)] 0.25-35 mg-mcg tablet 1 tab PO DAILY Qty: 28 0RF montelukast [Singulair] 10 mg tablet 10 mg PO DAILY buspirone 15 mg tablet 15 mg PO BID celecoxib 200 mg capsule 200 mg PO HS Changed Zyrtec 10 mg capsule 10 mg PO HS Qty: 0 0RF Discontinued fluoxetine 40 mg capsule 40 mg DAILY Discharge Orders: Discharge Order (Routine); Ordered 02/29/24 Ordered By: Lucy Nava Admission Data Admit Date/Time: 02/26/24 20:09 Attending Provider: Lucy Nava Admit Provider: Lucy Nava Primary Care Provider: Lashonda Stanley Other Interventions: Discharge Summary Assessment (RN) Last Done: 02/29/24 10:27 PSY Interdisciplinary Discharge Planning Last Done: 02/29/24 09:13 Coding Level of Care Code 22476 D/C day mgmt > 30 min Diagnoses Depression with suicidal ideation F32.A; R45.851 Generalized anxiety disorder with panic attacks F41.1; F41.0 Fibromyalgia M79.7
[2024-03-01 12:32] LABS: Marijuana Quant, GCMS Urine 142 ng/mL (<5)
== END 2024-02-29 11:00 | disposition home or self-care (01) | DRG 881 ==
LOC: ED 15:40 → 3S 20:09